=== PATIENT | female | born 2000 | race African-American/Black ===

== ENCOUNTER 2023-10-23 11:38 | Emergency (ER) | payer OTHER, SELFPAY ==
[2023-10-23 11:44] VITALS: BP 127/84; PULSE 86; RESP 16; TEMP 36.3; O2SAT 100; BMI 27.5
--- NOTE | 2023-10-23 12:56 | ED.GENADULT ---
HPI - General Adult General Time Seen by Provider: 12:56 Date Seen: 10/23/23 Chief complaint: Chest Pain Stated complaint: L shoulder/chest pain, fever Time Seen by Provider: 10/23/23 12:39 Source: patient Mode of arrival: ambulatory Limitations: no limitations History of Present Illness HPI narrative: Madeleine is a 23 year old female with no past medical history studying [employer] at [employer] presents emergency department via private car and self with chest pain. Patient states that 2 weeks ago she had an ongoing cough and congestion, this has improved, she still does have a dry cough, woke up yesterday with a sore throat, posterior head fullness, she denied any ear pain, she has had some postnasal drip, 1 of her roommates had similar symptoms, diagnosed with laryngitis. Patient developed fever last night, she took Aleve and this improved, she woke up last night drenched in sweat. She also developed some right anterior shoulder pain, no injury, she does have pain in that shoulder in the past but has been more severe, she took 2 Aleve this morning which helped, she is right handed. Just prior to coming to the emergency department she had some sharp intermittent lateral right chest pain which spontaneously resolved, pain did not change with inspiration, she did not have any shortness of breath. Patient has no pain at this time, she has been eating and drinking normally, no nausea vomiting. She denies any diarrhea, chest pain or abdominal pain at this time. Related Data Home Medications Medication Instructions Recorded Confirmed No Known Home Medications 04/13/23 10/23/23 Allergies Allergy/AdvReac Type Severity Reaction Status Date / Time No Known Drug Allergies Allergy Verified 10/23/23 11:50 Review of Systems Status of ROS: Reports: 10 or more systems reviewed and unremarkable except as noted in History and below PFS PFS Social History Smoking Status: Never smoker How often do you have a drink containing alcohol: never AUDIT-C Alcohol total score: 0 Non-prescribed substance use: denies use service: No Exam Narrative: Exam Narrative: General: Nontoxic in appearance, no obvious distress HEENT: Tympanic membranes within normal limits bilaterally, oropharynx shows mild post oropharyngeal erythema, no exudate. No cervical adenopathy Lungs: Clear to auscultation bilaterally, no stridor, wheezing, rales or rhonchi Heart: Normal sinus rhythm S1-S2 Abdomen: Soft nontender, bowel sounds present: Muscle skeletal: +5 strength upper lower extremities, FROM right shoulder Neuro: Alert awake and oriented x3 Const: Vital Signs, click to edit/add: Vital Signs - 24 hr 10/23/23 11:44 Temperature 97.4 F L Pulse Rate [Right Pulse Oximeter] 86 Respiratory Rate 16 Blood Pressure [Ri ght Upper Arm] 127/84 Pulse Oximetry 100 Oxygen Delivery Me thod Room Air Course Course ED Course: 1:00 PM: AIDET performed, vitals are normal at this time, workup will include COVID/influenza A/B/RSV nasopharyngeal swab, strep a DNA probe, XR chest PA and lateral, suspect viral etiology similar to roomate, patient has no pain at this time. Differential includes strep pharyngitis, viral pharyngitis, viral upper respiratory infection, pneumonia, costochondritis, pleurisy, allergic rhinitis, otitis media, sinusitis, postnasal drip as well as all etiologies. Reevaluation(s) Reevaluation #1: Nasopharyngeal swabs including SARs/influenza/RSV were negative, strep a DNA probe also negative, imaging showed no acute cardiopulmonary process, patient feels better after above care given, plan would be to discharge, she will follow up with primary care provider over the next 7-10 days. Vital Signs Vital signs: Initial Vital Signs Temperature 97.4 F L 10/23/23 11:44 Temperature Source Temporal Artery Scan 10/23/23 11:44 Pulse Rate 86 10/23/23 11:44 Respiratory Rate 16 10/23/23 11:44 Blood Pressure 127/84 10/23/23 11:44 Blood Pressure Mean 98 10/23/23 11:44 Blood Pressure Position Sitting 10/23/23 11:44 Pulse Oximetry 100 10/23/23 11:44 Oxygen Delivery Method Room Air 10/23/23 11:44 Vital Signs Temperature 97.4 F L 10/23/23 11:44 Pulse Rate 86 10/23/23 11:44 Respiratory Rate 16 10/23/23 11:44 Blood Pressure 127/84 10/23/23 11:44 Pulse Oximetry 100 10/23/23 11:44 Oxygen Delivery Method Room Air 10/23/23 11:44 Temperature 97.4 F L 10/23/23 11:44 Pulse Rate 86 10/23/23 11:44 Respiratory Rate 16 10/23/23 11:44 Blood Pressure 127/84 10/23/23 11:44 Pulse Oximetry 100 10/23/23 11:44 Oxygen Delivery Method Room Air 10/23/23 11:44 Medical Decision Making Lab Data Labs: Lab Results 10/23/23 10/23/23 Range/Units 12:58 13:22 SARS-CoV-2 (PCR) Negative SARS-CoV-2 (Negative) Influenza Type A (PCR) Negative PCR FLU A (Negative) Influenza Type B (PCR) Negative PCR FLU B (Negative) RSV (PCR) Negative PCR RSV (Negative) Group A Strep DNA NOT DETECTED (Not Detectd) Discharge Plan Discharge Clinical Impression: Viral upper respiratory infection Patient Disposition: Home, Self-Care Condition: Improved Instructions: Viral Syndrome (ED) Additional Instructions: To take Tylenol 1000 mg and or Motrin 600-800 mg every 4-6 hours as needed for pain and fever, follow-up with a primary care provider as needed over the next 7-10 days. Return if worsened symptoms. Activity Level: Activity as Tolerated Discharge Diet: Regular Prescriptions: No Action No Known Home Medications Follow Up/Referrals: Provider,Not a Local [Primary Care Provider] - Stand Alone Forms: [facility] Info Instructions
--- NOTE | 2023-10-23 13:13 | CRLHL7_ITS ---
For Patients: As a result of the Cures Act, medical imaging exams and procedure reports are released immediately into your electronic medical record. You may view this report before your referring provider. If you have questions, please contact your health care provider. INDICATION: Right sided chest pain and shoulder pain, fever, cough. TECHNIQUE: Chest 2 views. COMPARISON: None. FINDINGS: Cardiovascular and mediastinum: Heart size and vasculature are normal in caliber and appearance. Lungs and pleural spaces: Lungs are clear. No sign of infiltrate. No sign of pleural effusion. No pneumothorax. Bones and soft tissues: No significant findings. IMPRESSION: No evidence of acute cardiopulmonary process. Dictated by Raghu Walton MD @ 10/23/2023 2:40:16 PM (Electronically Signed)
[2023-10-23 13:58] LABS: PCR FLU A Negative PCR FLU A (Negative); PCR FLU B Negative PCR FLU B (Negative); PCR RSV Negative PCR RSV (Negative)
[2023-10-23 14:44] LABS: SARS PCR* Negative SARS-CoV-2 (Negative)
[2023-10-23 15:13] LABS: Strep A DNA Probe* NOT DETECTED (Not Detectd)
== END 2023-10-23 15:18 | disposition home or self-care (01) ==
PROVIDERS: Emergency Provider Student in an Organized Health Care Education/Training Program
DX: J06.9 Acute upper respiratory infection, unspecified (principal)
CPT/HCPCS: 71046; 87631; 87651; 99284

== ENCOUNTER 2024-03-20 10:26 | Outpatient (CLI) | payer OTHER, SELFPAY ==
--- NOTE | 2024-03-20 10:30 | XR_ITS ---
Patient: ANTWAN COTTON Facility:?[facility] Patient ID:?[id number] Site Patient ID:?[id number]. Site :?[id number] Study:?XRay-Chest 2 VIEW-03/20/2024 10:56:45 AM Ordering Physician:?ANATOLY SABA Final Report: INDICATION: TB SCREEN, ASYMPTOMATIC COMPARISON: 10/23/2023 TECHNIQUE: Two views of the chest were obtained. FINDINGS: The lungs are clear. There is no evidence of a suspicious infiltrate, cavitary lesion or focal pleural abnormality. Pulmonary melanie are of normal size and density. Heart and blood vessels appear normal and there is no evidence of pleural fluid. IMPRESSION: No active pulmonary process identified. Dictated by Louis King MD @ 03/20/2024 11:57:36 AM Signed by:?Louis King MD @03/20/2024 11:57:36 AM (Electronic Signature)
== END 2024-03-20 10:27 | disposition home or self-care (01) ==
PROVIDERS: Visit Provider Nurse Practitioner
DX: Z11.1 Encounter for screening for respiratory tuberculosis (principal)
CPT/HCPCS: 71046